=== PATIENT | female | born 1995 | race Caucasian/White ===

== ENCOUNTER → 2017-12-03 13:08 | Outpatient (CLI) | payer OTHER, SELFPAY ==
[2017-12-06 10:14] LABS: HPV APTIMA, High Risk Negative (Negative)
== END ==
PROVIDERS: Visit Provider Obstetrics & Gynecology
DX: Z01.419 Encounter for gynecological examination (general) (routine) without abnormal findings (principal); Z12.4 Encounter for screening for malignant neoplasm of cervix
CPT/HCPCS: 88175; G0145

== ENCOUNTER → 2021-01-11 | Outpatient (CLI) | payer OTHER, SELFPAY ==
[2021-01-18 09:55] LABS: HPV Reflexed? NOT INDICATED
== END | disposition home or self-care (01) ==
PROVIDERS: Visit Provider Obstetrics & Gynecology
DX: Z12.4 Encounter for screening for malignant neoplasm of cervix (principal)
CPT/HCPCS: 88175; G0145